=== PATIENT | female | born 1990 | race Caucasian/White ===

== ENCOUNTER 2021-09-14 11:16 | Inpatient (IN) | payer OTHER, SELFPAY ==
[2021-09-14 11:26] VITALS: BP 148/107; PULSE 79; RESP 16; TEMP 36.9; O2SAT 96
--- NOTE | 2021-09-14 11:47 | W.ED.GENADLT ---
HPI - General Adult General: Chief complaint: Psychiatric Symptoms Stated complaint: SI Time Seen by Provider: 09/14/21 11:36 History of Present Illness: HPI narrative: HPI: [31]yo patient w/ hx of depression BIBA for suicidal ideation. Patient tells me her mother and her ex both recently. She has not been able to restart her medicine because of insurance reasons. On arrival, the patient is AAOx3 and cooperative with my evaluation. No focal complaints of chest pain, shortness of breath, palpitations, N/V, focal GI/ complaints. Denies HI. No complaints of hallucinations. Onset: chronic x 1 month Duration: ongoing Location: home Severity: severe Associated symptoms: Deny chest pain, dyspnea, nausea, rash, palpitations or vomiting Review of Systems Const: Denies: fever(s) or chills Eyes: Denies: change in vision ENMT: Denies: mouth pain Card: Denies: chest pain or palpitations Resp: Denies: dyspnea or non-productive cough GI: Denies: abdominal pain, nausea, vomiting or diarrhea : Denies: dysuria Musc: Denies: extremity pain Skin/Breast: Denies: rash or new lesions Neuro: Denies: weakness in extremities Psych: Reports: depression Christiano/Lymph: Denies: easy bruising PFSH ED PFSH: Social History Smoking and tobacco status: never smoked Alcohol intake: never Substance/Drug Use: never Physical Exam Const: COMMON NORMALS: alert HENMT: COMMON NORMALS: atraumatic HEAD & SCALP: atraumatic MOUTH: moist mucous membranes not abnormal Eye: COMMON NORMALS: EOMs intact bilaterally and conjunctivae normal CONJUNCTIVA: Yes conjunctivae normal Neck/C-Spine: COMMON NORMALS: full ROM and supple Resp: COMMON NORMALS: normal respiratory effort and clear to auscultation bilaterally AUSCULTATION: clear to auscultation bilaterally Cardio: COMMON NORMALS: regular rate RATE: regular rate GI: COMMON NORMALS: Soft to palpation and non-tender PALPATION: Yes Soft to palpation Extremity: COMMON NORMALS: full ROM Neuro: SENSORIUM/ORIENTATION: Yes alert MOTOR EXAM: No Abnormal motor strength present and Other motor observations present (no focal motor deficits) Psych: COMMON NORMALS: speech normal SPEECH: Yes normal speech MOOD & AFFECT: Yes depressed mood Course Vital Signs: Vital signs: Vital Signs Temperature 98.4 F 09/14/21 11:26 Pulse Rate 79 09/14/21 11:26 Respiratory Rate 16 09/14/21 11:26 Blood Pressure 148/107 09/14/21 11:26 Pulse Oximetry 96 09/14/21 11:26 MDM - General Adult MDM Narrative: Medical decision making narrative: [31]yo patient w/ hx of depression presenting for depression and SI. HDS, exam within normal limit Thoughts are linear and organized, and the patient has no AH/VH, or HI. Clinically the patient displays no overt toxidrome; they are well appearing, with low suspicion for toxic ingestion given history and exam. Symptoms unlikely 2/2 anemia, hypothyroidism, infection, or ICH. Workup: CBC, CMP, Lipase, salicylate/tylenol, hCG, UDS Lab findings: wnl [12:30pm] On reassessment, labs and workup wnl. Patient is hemodynamically stable with no acute medical complaints. Case discussed with psychiatric provider Dr. Solorzano at [facility] psych inpatient with recommendation for admission Disposition: Psych Discharge Plan Discharge Patient Disposition: Admitted As Inpatient Clinical Impression: Suicidal ideations, Depression Condition: Stable Coding Level of Care Code ED Cornice Maker for Chg Fwd Exam Comprehensive
[2021-09-14 15:05] LABS: Basophils % 0.3 %; Eosinophils # 0.2 10^3/uL (0.0-0.8); Eosinophils % 1.5 %; Hematocrit 50.2 % (37.0-47.0); Hemoglobin 16.8 g/dL (11.5-15.3); Lymphocytes # 3.3 10^3/uL (0.8-4.8); Lymphocytes % 28.9 %; Mean Corpuscular HGB Conc 33.5 g/dL (30.0-36.0); Mean Corpuscular Hemoglobin 30.9 pg (28.0-34.0); Mean Corpuscular Volume 92.4 fl (81-99); Mean Platelet Volume 10.7 fL (7.4-10.4); Monocytes # 0.7 10^3/uL (0.2-0.9); Monocytes % 6.1 %; Neutrophils # 7.21 10^3/uL (1.8-7.7); Neutrophils % 62.9 %; Nucleated Red Blood Cells % 0 %; Platelet Count 301 10^3/cmm (130-400); Red Blood Count 5.43 10^6/uL (4.1-5.3); Red Cell Distribution Width 12.7 % (12.1-15.1); White Blood Count 11.5 10^3/uL (4.0-10.0)
[2021-09-14 15:25] LABS: HCG, Serum Qual Negative (Negative)
[2021-09-14 15:26] LABS: Alanine Aminotransferase 21 U/L (0-33); Alkaline Phosphatase 85 IU/L (35-105); Anion Gap 16.4 (5-19); Aspartate Amino Transferase 12 U/L (0-32); Blood Urea Nitrogen 10 mg/dL (6-20); Carbon Dioxide 23 mmol/L (22-29); Chloride 105 mmol/L (98-107); Glomerular Filtration Rate 118.2 mL/min (90-130); Glucose 75 mg/dL (65-115); Lipase 29 U/L (13-60); Osmolality Calculated 288 mOsm/kg (285-295); Potassium 4.4 mmol/L (3.5-5.1); Sodium 140 mmol/L (136-145); Total Bilirubin 0.4 mg/dL (0.15-1.2)
[2021-09-14 15:32] LABS: Acetaminophen < 5.0 ug/mL (10-30); Salicylate < 0.3 mg/dL (3-10)
[2021-09-14 16:25] VITALS: BP 113/76; PULSE 74; RESP 18; TEMP 36.8; O2SAT 96
[2021-09-14 17:06] VITALS: BP 127/94; PULSE 82; RESP 18; TEMP 36.6
[2021-09-14] MEDS: hyDROXYzine 25 mg Capsule 50 MG PO ×2 (17:34→20:25)
--- NOTE | 2021-09-14 18:16 | PC.NURSE ---
Addendum entered by Willie Diggs RN 09/14/21 18:51: PT IN BED RESTING O S/S OF DISTRESS, WILL CONTINUE TO MONITOR. Original Note: PRN MED PT GIVEN 50MG VISTARIL FOR ANXIETY, WILL CONTINUE TO MONITOR.
[2021-09-14 19:53] VITALS: BP 133/81; PULSE 68; RESP 15; TEMP 36.7; O2SAT 99
[2021-09-14] MEDS: trazodone 50 mg Tablet PO (20:25)
[2021-09-15 05:41] VITALS: BP 118/74; PULSE 71; RESP 17; TEMP 36.9; O2SAT 98
[2021-09-15] MEDS: fluoxetine 20 mg Capsule PO (09:00)
--- NOTE | 2021-09-15 10:15 | W.PM.NPUH&PS ---
Providers/Chief Complaint Admitting Physician: Toby Solorzano MD Chief Complaint: SI HPI NPU History of Present Illness Jose Guadalupe Rodas is a 31 year old female admitted through our emergency department with the following report: HPI narrative: HPI: [31]yo patient w/ hx of depression BIBA for suicidal ideation. Patient tells me her mother and her ex both recently. She has not been able to restart her medicine because of insurance reasons. On arrival, the patient is AAOx3 and cooperative with my evaluation. No focal complaints of chest pain, shortness of breath, palpitations, N/V, focal GI/ complaints. Denies HI. No complaints of hallucinations. Onset: chronic x 1 month She was admitted to the neuropsychiatry unit for definitive treatment of these issues. History is what is she has had a termite exterminator helper anxiety and depression. She says they were both equally debilitating. She avoids going shopping because of her anxiety. She has low self-esteem and social anxiety. She was recently admitted to a psychiatry hospital in April of last year. She said that she checked herself out AGAINST MEDICAL ADVICE because her mother was not doing well. Her mother is an alcoholic and had depression and anxiety and diabetes. She here very recently. Her ex- also within the last 3 weeks. They have been for 4 years and he was very violent but not towards her. He is an alcoholic and abused drugs. He was in the [place] and had PTSD. They have been for 7 months but are back together and planning to get again. She thinks he from an accidental overdose of alcohol and methamphetamine. She is admitted for depression and suicidal ideation. She said her childhood was okay. There were no significant issues. She was not abused. She had difficulty with concentration and her teenage years and they started her on Adderall and then started her on Zoloft for depression. She took the Zoloft for about 2 months and had suicidal ideation. She denies any other suicidal ideation until she got into her 20s. She was hospitalized for the first time when she was 24 years old. She has been hospitalized about 7 times. She says that the only medications she remembers being on is Prozac and Xanax 0.5 mg at bedtime for sleep. It is never really done anything and she does not think the dose has been higher than 20 mg. She has also had chronic insomnia. She took trazodone 50 mg and Vistaril last night to help her sleep and she agreed to try increasing trazodone to 100 mg so that she did not need anything else with it. She agreed to try Lexapro instead of Prozac. Meds NPU Home Medications Medication Instructions Recorded Confirmed Last Taken Type fluoxetine 20 mg PO DAILY 09/14/21 09/14/21 08/31/21 History Allergies Allergy/AdvReac Type Severity Reaction Status Date / Time No Known Allergies Allergy Verified 09/14/21 13:29 PFSH NPU PFSH: Social History Smoking and tobacco status: never smoked Alcohol intake: never Substance/Drug Use: never Mental Status Exam MSE Comments: This is a 31-year-old overweight female who appears approximately her stated age and is in no acute distress. She is dressed in hospital scrubs. She is pleasant and cooperative with normal. Good eye contact. psychomotor activity is normal.. Speech is at a regular rate and rhythm, normal volume, good articulation, not pressured. Alert, oriented X3 Attention and concentration appears to be normal. Memory is intact Mood is depressed. Affect is moderately dysphoric. Thought process is logical and goal-directed. Thought content: Denies auditory and visual hallucinations. No delusions or paranoia are noted. No current suicidal ideation, and no homicidal ideation. Fund of knowledge is average. Insight and judgment appear to be good. Impulse control is good. Vitals/I&O/Wt Last Vital Signs Temp 98.4 F 09/15/21 05:41 Pulse 71 09/15/21 05:41 Resp 17 09/15/21 05:41 BP 118/74 09/15/21 05:41 Pulse Ox 98 09/15/21 05:41 Weight last 48 hrs Weight 102.058 kg Data NPU : 09/14/21 14:36 09/14/21 14:36 A&P Assessment and plan (1) Depression: Status: Acute Qualifiers: Depression Type: major depressive disorder Major depression recurrence: recurrent Active/Remission status: currently active Major depression episode severity: severe Psychotic features: without psychotic features Qualified Code(s): F33.2 - Major depressive disorder, recurrent severe without psychotic features (2) Suicidal ideations: Status: Acute (3) Anxiety: Status: Acute Additional A&P Information This is a 31-year-old female with 7 prior hospitalizations who comes in after her ex- and mother in the last 3 weeks and has suicidal ideations. plan: 1. We will change to Lexapro and trazodone 100 mg nightly. 2. Continue every 15 minute checks for safety. 3. Encourage individual, group and milieu therapies. 4. Encourage sober living treatment after discharge at the highest level of care to which she is willing to commit. 5. We will monitor for safety for herself in the community prior to discharge. Involuntary Hold Information 96 Hour Hold: 96 Hour Involuntary Admission: No Attestations NPU Medical Necessity Statement*: Inpatient hospitalization is medically necessary and the clinically appropriate intervention at this time. We will initiate medications and make changes as indicated. She will be in the hospital for over 2 midnights. Likely length of stay 4-6 days Coding Level of Care Code Acute [employer] Unit Feeder for Saulo Castillo Diagnoses Depression F33.2 Depression Type: major depressive disorder Major depression recurrence: recurrent Active/Remission status: currently active Major depression episode severity: severe Psychotic features: without psychotic features Suicidal ideations R45.851 Anxiety F41.9
[2021-09-15] MEDS: hyDROXYzine 25 mg Capsule 50 MG PO ×2 (11:25→21:22)
[2021-09-15] MEDS: OLANZapine 5 mg ODT PO (11:25)
[2021-09-15 13:40] VITALS: BP 118/74; PULSE 71; RESP 17; TEMP 36.9; O2SAT 98
[2021-09-15 21:05] VITALS: BP 116/80; PULSE 64; RESP 16; TEMP 36.3; O2SAT 96
[2021-09-15] MEDS: trazodone 50 mg Tablet 100 MG PO (21:22)
--- NOTE | 2021-09-16 00:40 | PC.NURSE ---
PRN Administration Patient c/o having trouble falling asleep and anxiety. PRN trazodone and hydroxyzine PO given as ordered with noted effectiveness.
[2021-09-16] MEDS: acetaminophen 325 mg Tablet 650 MG PO (04:39)
--- NOTE | 2021-09-16 04:41 | PC.NURSE ---
PRN administration Patient c/o pain 03/07 in back. PRN Tylenol given PO as ordered.
[2021-09-16 06:00] VITALS: BP 109/74; PULSE 67; RESP 18; TEMP 36.3; O2SAT 97
[2021-09-16] MEDS: escitalopram 10 mg Tablet PO (09:36)
--- NOTE | 2021-09-16 12:11 | P.NPUPN_ITS ---
Subjective NPU Subjective: Interval history: She is still feeling depressed and has some suicidal ideation. She did not sleep very well last night. She was in bed much of the day yesterday. He was encouraged to get up and stay out of bed more. She has not been going to groups and was encouraged to do so. She did walk in the hallway some this morning but was encouraged to do that more. She was told to talk to any other patients also do anything other than staying in bed. Been on Prozac so we should be able to increase the Lexapro to 20 mg without difficulty. She agrees to do that. She did not have difficulty with today's 10 mg dose. Mental Status Exam MSE Comments: This is a 31-year-old overweight female who appears approximately her stated age and is in no acute distress. He was found in bed at 12 noon. She is dressed in hospital scrubs. She is pleasant and cooperative with Good eye contact. psychomotor activity is normal.. Speech is at a regular rate and rhythm, normal volume, good articulation, not pressured. Alert, oriented X3 Attention and concentration appears to be normal. Memory is intact Mood is depressed. Affect is moderately dysphoric. Thought process is logical and goal-directed. Thought content: Denies auditory and visual hallucinations. No delusions or paranoia are noted. He has had some mild suicidal ideation today but no plan. She denies homicidal ideation. Fund of knowledge is average. Insight and judgment appear to be good. Impulse control is good. Cognition: Patient Appearance: Appropriate Level of Consciousness: Awake, Alert, Appropriate and Follows Commands Patient Cognition Impaired: No Ability to Follow Directions: Good Patient Orientation (long list): Person, Place, Time, Name, Age and Birthday Comprehension Ability: No Impairment Hallucination Type: None Delusion Description: Not Present Thought Process: Appropriate Affect: Affect Description: Flat and Guarded Depressive Symptoms: Insomnia and Unhappiness Behavior: Patient Behavior: Cooperative and Withdrawn Speech Pattern: Appropriate Vitals/I&O/Wt Last Vital Signs Temp 97.3 F L 09/16/21 06:00 Pulse 67 09/16/21 06:00 Resp 18 09/16/21 06:00 BP 109/74 09/16/21 06:00 Pulse Ox 97 09/16/21 06:00 Data NPU : 09/14/21 14:36 09/14/21 14:36 A&P Assessment and plan (1) Depression: Status: Acute Qualifiers: Depression Type: major depressive disorder Major depression recurrence: recurrent Active/Remission status: currently active Major depression episode severity: severe Psychotic features: without psychotic features Qualified Code(s): F33.2 - Major depressive disorder, recurrent severe without psychotic features (2) Suicidal ideations: Status: Acute (3) Anxiety: Status: Acute Additional A&P Information This is a 31-year-old female with 7 prior hospitalizations who comes in after her ex- and mother in the last 3 weeks and has suicidal ideations. plan: 1. We will increase Lexapro 20 mg and continue trazodone 100 mg nightly. 2. Continue every 15 minute checks for safety. 3. Encourage individual, group and milieu therapies. 4. Encourage sober living treatment after discharge at the highest level of care to which she is willing to commit. 5. We will monitor for safety for herself in the community prior to discharge. Involuntary Hold Information 96 Hour Hold: 96 Hour Involuntary Admission: No Attestations NPU Medical Necessity Statement*: Inpatient hospitalization is medically necessary and the clinically appropriate intervention at this time. We will initiate medications and make changes as indicated. Coding Level of Care Code Acute [employer] for Saulo Castillo Diagnoses Depression F33.2 Depression Type: major depressive disorder Major depression recurrence: recurrent Active/Remission status: currently active Major depression episode severity: severe Psychotic features: without psychotic features Suicidal ideations R45.851 Anxiety F41.9
[2021-09-16] MEDS: nicotine 2 mg Gum BUCCAL (12:38)
[2021-09-16 14:00] VITALS: BP 110/72; PULSE 95; RESP 18; TEMP 36.6; O2SAT 100
[2021-09-16] MEDS: trazodone 50 mg Tablet 100 MG PO (21:31)
[2021-09-16] MEDS: hyDROXYzine 25 mg Capsule 50 MG PO (21:31)
[2021-09-16 21:46] VITALS: BP 112/77; PULSE 67; RESP 16; TEMP 36.7; O2SAT 98
--- NOTE | 2021-09-17 01:25 | PC.NURSE ---
PRN Administration Patient c/o of anxiety and trouble falling asleep. Given PRN hydroxyzine and Trazodone PO as ordered with noted effectiveness.
[2021-09-17 06:00] VITALS: BP 95/61; PULSE 63; RESP 18; TEMP 36.6; O2SAT 96
[2021-09-17] MEDS: escitalopram 10 mg Tablet PO (08:24)
[2021-09-17] MEDS: hyDROXYzine 25 mg Capsule 50 MG PO (11:37)
[2021-09-17] MEDS: nicotine 2 mg Gum BUCCAL (13:40)
--- NOTE | 2021-09-17 13:43 | P.NPUPN_ITS ---
Subjective NPU Subjective: Interval history: She is feeling a little better today. A little less depressed. She is not sure why. She lives with her aunt. Her mother still has things in her apartment and she needs to clean that out before she starts working again. She has not worked since March. She agreed that going back to work eventually would be healthy. Mental Status Exam MSE Comments: This is a 31-year-old overweight female who appears approximately her stated age and is in no acute distress. She was found in her room talking with her roommates at 1:30 PM.. She is dressed in hospital scrubs. She is pleasant and cooperative with Good eye contact. psychomotor activity is normal. Speech is at a regular rate and rhythm, normal volume, good articulation, not pressured. Alert, oriented X3 Attention and concentration appears to be normal. Memory is intact Mood is depressed. Affect is moderately dysphoric. Thought process is logical and goal-directed. Thought content: Denies auditory and visual hallucinations. No delusions or paranoia are noted. He has had some mild suicidal ideation today but no plan. She denies homicidal ideation. Fund of knowledge is average. Insight and judgment appear to be good. Impulse control is good. Cognition: Patient Appearance: Appropriate Level of Consciousness: Awake, Alert, Appropriate and Follows Commands Patient Cognition Impaired: No Ability to Follow Directions: Good Patient Orientation (long list): Person, Place, Time, Name, Age and Birthday Comprehension Ability: No Impairment Hallucination Type: None Delusion Description: Not Present Thought Process: Appropriate Affect: Affect Description: Appropriate Depressive Symptoms: Insomnia and Unhappiness Behavior: Patient Behavior: Appropriate Speech Pattern: Appropriate Vitals/I&O/Wt Last Vital Signs Temp 98 F 09/17/21 06:00 Pulse 63 09/17/21 06:00 Resp 18 09/17/21 06:00 BP 95/61 09/17/21 06:00 Pulse Ox 96 09/17/21 06:00 Data NPU : 09/14/21 14:36 09/14/21 14:36 A&P Assessment and plan (1) Depression: Status: Acute Qualifiers: Depression Type: major depressive disorder Major depression recurrence: recurrent Active/Remission status: currently active Major depression episode severity: severe Psychotic features: without psychotic features Qualified Code(s): F33.2 - Major depressive disorder, recurrent severe without psychotic features (2) Suicidal ideations: Status: Acute (3) Anxiety: Status: Acute Additional A&P Information This is a 31-year-old female with 7 prior hospitalizations who comes in after her ex- and mother in the last 3 weeks and has suicidal ideations. plan: 1. Day 2 of Lexapro 20 mg and continue trazodone 100 mg nightly. 2. Continue every 15 minute checks for safety. 3. Encourage individual, group and milieu therapies. 4. Encourage sober living treatment after discharge at the highest level of care to which she is willing to commit. 5. We will monitor for safety for herself in the community prior to discharge. Involuntary Hold Information 96 Hour Hold: 96 Hour Involuntary Admission: No Attestations NPU Medical Necessity Statement*: Inpatient hospitalization is medically necessary and the clinically appropriate intervention at this time. We will initiate medications and make changes as indicated. Coding Level of Care Code Acute Home Economics Extension Worker for Saulo Castillo Diagnoses Depression F33.2 Depression Type: major depressive disorder Major depression recurrence: recurrent Active/Remission status: currently active Major depression episode severity: severe Psychotic features: without psychotic features Suicidal ideations R45.851 Anxiety F41.9
[2021-09-17 14:00] VITALS: BP 111/73; PULSE 71; RESP 18; TEMP 36.6; O2SAT 97
[2021-09-17 20:30] VITALS: BP 113/79; PULSE 79; RESP 17; TEMP 36.5; O2SAT 98
[2021-09-18 06:00] VITALS: BP 113/79; PULSE 79; RESP 17; TEMP 36.5; O2SAT 98
[2021-09-18 06:36] VITALS: BP 147/73; PULSE 64; RESP 16; TEMP 36.8; O2SAT 94
[2021-09-18] MEDS: escitalopram 10 mg Tablet PO (09:17)
--- NOTE | 2021-09-18 11:49 | W.PM.NPUPNS ---
Subjective NPU Subjective: Interval history: She is tired this morning. She said that she did not get sleep medications last night. She went to early and they told her it would be about 45 minutes. She says that she kept on waiting for them to bring her her medications but they never did. Her mood is a little bit better today. About the same as yesterday. She continues to feel that she is getting better and is optimistic about the progress. Mental Status Exam MSE Comments: This is a 31-year-old overweight female who appears approximately her stated age and is in no acute distress. She was found in her room talking with her roommates at 1:30 PM.. She is dressed in hospital scrubs. She is pleasant and cooperative with Good eye contact. psychomotor activity is normal. Speech is at a regular rate and rhythm, normal volume, good articulation, not pressured. Alert, oriented X3 Attention and concentration appears to be normal. Memory is intact Mood is depressed. Affect is moderately dysphoric. Thought process is logical and goal-directed. Thought content: Denies auditory and visual hallucinations. No delusions or paranoia are noted. He has had some mild suicidal ideation today but no plan. She denies homicidal ideation. Fund of knowledge is average. Insight and judgment appear to be good. Impulse control is good. Cognition: Patient Appearance: Appropriate Level of Consciousness: Awake, Alert, Appropriate and Follows Commands Patient Cognition Impaired: No Ability to Follow Directions: Good Patient Orientation (long list): Person, Place, Time, Name, Age and Birthday Comprehension Ability: No Impairment Hallucination Type: None Delusion Description: Not Present Thought Process: Appropriate Affect: Affect Description: Appropriate and Calm Depressive Symptoms: Insomnia and Unhappiness Behavior: Patient Behavior: Appropriate and Cooperative Speech Pattern: Appropriate and Clear Vitals/I&O/Wt Last Vital Signs Temp 98.2 F 09/18/21 06:36 Pulse 64 09/18/21 06:36 Resp 16 09/18/21 06:36 BP 147/73 09/18/21 06:36 Pulse Ox 94 09/18/21 06:36 Data NPU : 09/14/21 14:36 09/14/21 14:36 A&P Assessment and plan (1) Depression: Status: Acute Qualifiers: Depression Type: major depressive disorder Major depression recurrence: recurrent Active/Remission status: currently active Major depression episode severity: severe Psychotic features: without psychotic features Qualified Code(s): F33.2 - Major depressive disorder, recurrent severe without psychotic features (2) Suicidal ideations: Status: Acute (3) Anxiety: Status: Acute Additional A&P Information This is a 31-year-old female with 7 prior hospitalizations who comes in after her ex- and mother in the last 3 weeks and has suicidal ideations. plan: 1. Day 3 of Lexapro 20 mg and continue trazodone 100 mg nightly. 2. Continue every 15 minute checks for safety. 3. Encourage individual, group and milieu therapies. 4. Encourage sober living treatment after discharge at the highest level of care to which she is willing to commit. 5. We will monitor for safety for herself in the community prior to discharge. Involuntary Hold Information 96 Hour Hold: 96 Hour Involuntary Admission: No Attestations NPU Medical Necessity Statement*: Inpatient hospitalization is medically necessary and the clinically appropriate intervention at this time. We will initiate medications and make changes as indicated. Coding Level of Care Code Acute Bed Spring Maker for Saulo Castillo Diagnoses Depression F33.2 Depression Type: major depressive disorder Major depression recurrence: recurrent Active/Remission status: currently active Major depression episode severity: severe Psychotic features: without psychotic features Suicidal ideations R45.851 Anxiety F41.9
[2021-09-18 14:00] VITALS: BP 126/84; PULSE 68; RESP 17; TEMP 37; O2SAT 96
[2021-09-18] MEDS: nicotine 2 mg Gum BUCCAL (17:19)
[2021-09-18 20:26] VITALS: BP 121/79; PULSE 75; RESP 16; O2SAT 97
[2021-09-18] MEDS: trazodone 50 mg Tablet 100 MG PO (20:51)
[2021-09-18] MEDS: hyDROXYzine 25 mg Capsule 50 MG PO (20:51)
--- NOTE | 2021-09-19 02:39 | PC.NURSE ---
PRN administration Patient c/o of trouble getting to sleep and anxiety. Requested PRN trazodone and hydroxyzine PO, given as ordered with noted effectiveness.
[2021-09-19 06:00] VITALS: BP 92/61; PULSE 64; RESP 20; TEMP 36.4; O2SAT 97
[2021-09-19] MEDS: escitalopram 10 mg Tablet PO (09:23)
--- NOTE | 2021-09-19 11:24 | W.PM.NPUPNS ---
Subjective NPU Subjective: Interval history: He says that she is getting a little bit better every day. She slept well last night with trazodone 100 mg. She continues to be fairly depressed but denies any suicidal ideation last 24 hours. She is participating in groups. She was found up and around in the day room after being at 11:15 AM. Mental Status Exam MSE Comments: This is a 31-year-old overweight female who appears approximately her stated age and is in no acute distress. She was found in the day room talking with other patients at 11:00 AM.. She is dressed in hospital scrubs. She is pleasant and cooperative with Good eye contact. psychomotor activity is normal. Speech is at a regular rate and rhythm, normal volume, good articulation, not pressured. Alert, oriented X3 Attention and concentration appears to be normal. Memory is intact Mood is depressed but a little better. Affect is mildly dysphoric. Thought process is logical and goal-directed. Thought content: Denies auditory and visual hallucinations. No delusions or paranoia are noted. She denies suicidal ideation today. She denies homicidal ideation. Fund of knowledge is average. Insight and judgment appear to be good. Impulse control is good. Cognition: Patient Appearance: Appropriate Level of Consciousness: Awake, Alert, Appropriate and Follows Commands Patient Cognition Impaired: No Ability to Follow Directions: Good Patient Orientation (long list): Person, Place, Time, Name, Age and Birthday Comprehension Ability: No Impairment Hallucination Type: None Delusion Description: Not Present Thought Process: Appropriate Affect: Affect Description: Calm Depressive Symptoms: Insomnia and Unhappiness Behavior: Patient Behavior: Cooperative Speech Pattern: Clear Vitals/I&O/Wt Last Vital Signs Temp 97.5 F L 09/19/21 06:00 Pulse 64 09/19/21 06:00 Resp 20 H 09/19/21 06:00 BP 92/61 09/19/21 06:00 Pulse Ox 97 09/19/21 06:00 Data NPU : 09/14/21 14:36 09/14/21 14:36 A&P Assessment and plan (1) Depression: Status: Acute Qualifiers: Depression Type: major depressive disorder Major depression recurrence: recurrent Active/Remission status: currently active Major depression episode severity: severe Psychotic features: without psychotic features Qualified Code(s): F33.2 - Major depressive disorder, recurrent severe without psychotic features (2) Suicidal ideations: Status: Acute (3) Anxiety: Status: Acute Additional A&P Information This is a 31-year-old female with 7 prior hospitalizations who comes in after her ex- and mother in the last 3 weeks and has suicidal ideations. plan: 1. Day 4 of Lexapro 20 mg and continue trazodone 100 mg nightly. 2. Continue every 15 minute checks for safety. 3. Encourage individual, group and milieu therapies. 4. Encourage sober living treatment after discharge at the highest level of care to which she is willing to commit. 5. We will monitor for safety for herself in the community prior to discharge. Involuntary Hold Information 96 Hour Hold: 96 Hour Involuntary Admission: No Attestations NPU Medical Necessity Statement*: Inpatient hospitalization is medically necessary and the clinically appropriate intervention at this time. We will initiate medications and make changes as indicated. Coding Level of Care Code Acute [facility] Diagnoses Depression F33.2 Depression Type: major depressive disorder Major depression recurrence: recurrent Active/Remission status: currently active Major depression episode severity: severe Psychotic features: without psychotic features Suicidal ideations R45.851 Anxiety F41.9
[2021-09-19] MEDS: nicotine 2 mg Gum BUCCAL ×3 (12:15→19:07)
[2021-09-19 14:00] VITALS: BP 110/74; PULSE 71; RESP 17; O2SAT 95
[2021-09-19 20:12] VITALS: BP 128/86; PULSE 90; RESP 17; O2SAT 96
[2021-09-19] MEDS: trazodone 50 mg Tablet 100 MG PO (20:28)
[2021-09-19] MEDS: OLANZapine 5 mg ODT PO (23:01)
--- NOTE | 2021-09-20 04:34 | PC.NURSE ---
Patient received TArazodone 100 mg po for insomnia. This was ineffective. Zyprexa 5 mg po given. This was effective.
[2021-09-20 06:00] VITALS: BP 109/77; PULSE 67; RESP 16; TEMP 36.5; O2SAT 97
[2021-09-20] MEDS: escitalopram 10 mg Tablet PO (08:51)
--- NOTE | 2021-09-20 10:35 | P.NPUPN_ITS ---
Subjective NPU Subjective: Interval history: She had difficulty sleeping last night. For some reason the trazodone 100 mg did not work for her electric as previously. She eventually took the Zyprexa. She slept fairly well after that. She is still somewhat drowsy this morning. She continues to feel that her mood is gradually improving a little bit each day. She feels like she will be able to go home in a couple of days. She is having suicidal thoughts today. She has not had side effects from the Lexapro and requested to increase it to 20 mg daily. She understands that it should generally be less than 10 mg for a month and she might be able to reduce it back to that dose in the near future. Mental Status Exam MSE Comments: This is a 31-year-old overweight female who appears approximately her stated age and is in no acute distress. She was found in bed at 10:30 AM.. She is dressed in hospital scrubs. She is pleasant and cooperative with Good eye contact. psychomotor activity is mildly decreased. Speech is at a regular rate and rhythm, normal volume, good articulation, not pressured. Alert, oriented X3 Attention and concentration appears to be normal. Memory is intact Mood is depressed but a little better each day. Affect is mildly dysphoric. Thought process is logical and goal-directed. Thought content: Denies auditory and visual hallucinations. No delusions or paranoia are noted. She denies suicidal ideation today. She denies homicidal ideation. Fund of knowledge is average. Insight and judgment appear to be good. Impulse control is good. Cognition: Patient Appearance: Appropriate Level of Consciousness: Awake, Alert, Appropriate and Follows Commands Patient Cognition Impaired: No Ability to Follow Directions: Good Patient Orientation (long list): Person, Place, Time, Name, Age and Birthday Comprehension Ability: No Impairment Hallucination Type: None Delusion Description: Not Present Thought Process: Appropriate Affect: Affect Description: Appropriate Depressive Symptoms: Insomnia and Unhappiness Behavior: Patient Behavior: Appropriate Speech Pattern: Appropriate Vitals/I&O/Wt Last Vital Signs Temp 97.7 F 09/20/21 06:00 Pulse 67 09/20/21 06:00 Resp 16 09/20/21 06:00 BP 109/77 09/20/21 06:00 Pulse Ox 97 09/20/21 06:00 Data NPU : 09/14/21 14:36 09/14/21 14:36 A&P Assessment and plan (1) Depression: Status: Acute Qualifiers: Depression Type: major depressive disorder Major depression recurrence: recurrent Active/Remission status: currently active Major depression episode severity: severe Psychotic features: without psychotic features Qualified Code(s): F33.2 - Major depressive disorder, recurrent severe without psychotic features (2) Suicidal ideations: Status: Acute (3) Anxiety: Status: Acute Additional A&P Information This is a 31-year-old female with 7 prior hospitalizations who comes in after her ex- and mother in the last 3 weeks and has suicidal ideations. plan: 1. Increase Lexapro 20 mg and continue trazodone 100 mg nightly. 2. Continue every 15 minute checks for safety. 3. Encourage individual, group and milieu therapies. 4. Encourage sober living treatment after discharge at the highest level of care to which she is willing to commit. 5. We will monitor for safety for herself in the community prior to discharge. Involuntary Hold Information 96 Hour Hold: 96 Hour Involuntary Admission: No Attestations NPU Medical Necessity Statement*: Inpatient hospitalization is medically necessary and the clinically appropriate intervention at this time. We will initiate medications and make changes as indicated. Coding Level of Care Code Acute [facility] Diagnoses Depression F33.2 Depression Type: major depressive disorder Major depression recurrence: recurrent Active/Remission status: currently active Major depression episode severity: severe Psychotic features: without psychotic features Suicidal ideations R45.851 Anxiety F41.9
[2021-09-20] MEDS: nicotine 2 mg Gum BUCCAL ×3 (13:26→20:13)
[2021-09-20 14:00] VITALS: BP 119/79; PULSE 80; RESP 20; TEMP 36.6; O2SAT 97
[2021-09-20] MEDS: blistex lip oint 7 gm Tube 1 APPLIC TOPICAL (17:08)
[2021-09-20 20:22] VITALS: BP 137/88; PULSE 81; RESP 17; TEMP 36.6; O2SAT 94
[2021-09-20] MEDS: trazodone 50 mg Tablet 100 MG PO (23:19)
--- NOTE | 2021-09-21 01:13 | PC.NURSE ---
4616 Patient is asking for something to help her sleep. Trazodone 100mg po given for insomnia. This med was effective.
[2021-09-21 06:00] VITALS: BP 107/65; PULSE 69; RESP 20; TEMP 36.3; O2SAT 93
[2021-09-21 07:12] VITALS: BP 107/65; PULSE 69; RESP 20; TEMP 36.3; O2SAT 93
[2021-09-21] MEDS: escitalopram 10 mg Tablet 20 MG PO (09:34)
[2021-09-21] MEDS: nicotine 2 mg Gum BUCCAL ×2 (12:17→16:47)
--- NOTE | 2021-09-21 12:50 | P.NPUPN_ITS ---
Subjective NPU Subjective: Interval history: She said that she is feeling better. Her mood is actually fairly good today. He slept well last night. She took the increased dose of Lexapro today and did not have any side effects. She is sleeping well on the trazodone 100 mg. Mental Status Exam MSE Comments: This is a 31-year-old overweight female who appears approximately her stated age and is in no acute distress. She was found in bed at 10:30 AM.. She is dressed in hospital scrubs. She is pleasant and cooperative with Good eye contact. psychomotor activity is mildly decreased. Speech is at a regular rate and rhythm, normal volume, good articulation, not pressured. Alert, oriented X3 Attention and concentration appears to be normal. Memory is intact Mood is very mildly depressed.. Affect is very mildly dysphoric. Thought process is logical and goal-directed. Thought content: Denies auditory and visual hallucinations. No delusions or paranoia are noted. She denies suicidal ideation today. She denies homicidal ideation. Fund of knowledge is average. Insight and judgment appear to be good. Impulse control is good. Cognition: Patient Appearance: Appropriate Level of Consciousness: Awake, Alert, Appropriate and Follows Commands Patient Cognition Impaired: No Ability to Follow Directions: Good Patient Orientation (long list): Person, Place, Time, Name, Age and Birthday Comprehension Ability: No Impairment Hallucination Type: None Delusion Description: Not Present Thought Process: Appropriate Affect: Affect Description: Appropriate and Calm Depressive Symptoms: Insomnia and Unhappiness Behavior: Patient Behavior: Appropriate and Cooperative Speech Pattern: Appropriate and Clear Vitals/I&O/Wt Last Vital Signs Temp 97.4 F L 09/21/21 07:12 Pulse 69 09/21/21 07:12 Resp 20 H 09/21/21 07:12 BP 107/65 09/21/21 07:12 Pulse Ox 93 09/21/21 07:12 Data NPU : 09/14/21 14:36 09/14/21 14:36 A&P Assessment and plan (1) Depression: Status: Acute Qualifiers: Depression Type: major depressive disorder Major depression recurrence: recurrent Active/Remission status: currently active Major depression episode severity: severe Psychotic features: without psychotic features Qualified Code(s): F33.2 - Major depressive disorder, recurrent severe without psychotic features (2) Suicidal ideations: Status: Acute (3) Anxiety: Status: Acute Additional A&P Information This is a 31-year-old female with 7 prior hospitalizations who comes in after her ex- and mother in the last 3 weeks and has suicidal ideations. plan: 1. Increase Lexapro 20 mg and continue trazodone 100 mg nightly. 2. Continue every 15 minute checks for safety. 3. Encourage individual, group and milieu therapies. 4. Encourage sober living treatment after discharge at the highest level of care to which she is willing to commit. 5. We will monitor for safety for herself in the community prior to discharge. Involuntary Hold Information 96 Hour Hold: 96 Hour Involuntary Admission: No Attestations NPU Medical Necessity Statement*: Inpatient hospitalization is medically necessary and the clinically appropriate intervention at this time. We will initiate medications and make changes as indicated. Coding Level of Care Code Acute [facility] Diagnoses Depression F33.2 Depression Type: major depressive disorder Major depression recurrence: recurrent Active/Remission status: currently active Major depression episode severity: severe Psychotic features: without psychotic features Suicidal ideations R45.851 Anxiety F41.9
[2021-09-21 14:00] VITALS: BP 117/81; PULSE 78; RESP 20; TEMP 36.6; O2SAT 97
[2021-09-21 20:16] VITALS: BP 119/74; PULSE 82; RESP 18; O2SAT 96
[2021-09-21] MEDS: trazodone 50 mg Tablet 100 MG PO (21:18)
[2021-09-22 06:00] VITALS: BP 143/88; PULSE 72; RESP 18; TEMP 36.1; O2SAT 98
--- NOTE | 2021-09-22 08:08 | P.NPUDS_ITS ---
Diagnoses at Discharge Discharge Diagnosis (1) Depression: Status: Acute Qualifiers: Depression Type: major depressive disorder Major depression recurrence: recurrent Active/Remission status: currently active Major depression episode severity: severe Psychotic features: without psychotic features Qualified Code(s): F33.2 - Major depressive disorder, recurrent severe without psychotic features (2) Suicidal ideations: Status: Acute (3) Anxiety: Status: Acute Reason for Visit Reason for Visit: SI Brief History: History of Present Illness Jose Guadalupe Rodas is a 31 year old female admitted through our emergency department with the following report: HPI narrative: HPI: [31]yo patient w/ hx of depression BIBA for suicidal ideation. Patient tells me her mother and her ex both recently. She has not been able to restart her medicine because of insurance reasons. On arrival, the patient is AAOx3 and cooperative with my evaluation. No focal complaints of chest pain, shortness of breath, palpitations, N/V, focal GI/ complaints. Denies HI. No complaints of hallucinations. Onset: chronic x 1 month She was admitted to the neuropsychiatry unit for definitive treatment of these issues.? History is what is she has had a jail anxiety and depression.? She says they were both equally debilitating.? She avoids going shopping because of her anxiety.? She has low self-esteem and social anxiety.? She was recently admitted to a psychiatry hospital in April of last year.? She said that she checked herself out AGAINST MEDICAL ADVICE because her mother was not doing well.? Her mother is an alcoholic and had depression and anxiety and diabetes.? She here very recently.? Her ex- also within the last 3 weeks.? They have been for 4 years and he was very violent but not towards her.? He is an alcoholic and abused drugs.? He was in the [employer] and had PTSD.? They have been for 7 months but are back together and planning to get again.? She thinks he from an accidental overdose of alcohol and methamphetamine.? She is admitted for depression and suicidal ideation.? She said her childhood was okay.? There were no significant issues.? She was not abused.? She had difficulty with concentration and her teenage years and they started her on Adderall and then started her on Zoloft for depression.? She took the Zoloft for about 2 months and had suicidal ideation.? She denies any other suicidal ideation until she got into her 20s.? She was hospitalized for the first time when she was 24 years old.? She has been hospitalized about 7 times.? She says that the only medications she remembers being on is Prozac and Xanax 0.5 mg at bedtime for sleep.? It is never really done anything and she does not think the dose has been higher than 20 mg.? She has also had chronic insomnia.? She took trazodone 50 mg and Vistaril last night to help her sleep and she agreed to try increasing trazodone to 100 mg so that she did not need anything else with it.? She agreed to try Lexapro instead of Prozac. Hospital Course Hospital Course She slowly acclimated to the individual, group and milieu therapies provided. She was started on Lexapro and increased to 20 mg. she tolerated these doses and showed steady improvement during her stay. She was able to contract for safety outside hospital prior to discharge. During the hospitalization, patient had routine laboratory studies which were within normal limits except for few outliers. Additionally there was a general medical evaluation which was also within normal limits and revealed no new acute processes. Discharge Summary: At the time of discharge, lethality was denied. Mood and anxiety were well managed. Patient endorsed a plan to follow-up with the aftercare r ecommendations of the treatment team. Patient was evaluated and deemed to be absent credible lethality, and had achieved the maximum benefit from an inpatient hospitalization, so was discharged. Involuntary Hold Information 96 Hour Hold: 96 Hour Involuntary Admission: No Mental Status Exam MSE Comments: This is a 31-year-old overweight female who appears approximately her stated age and is in no acute distress. She was found in bed at 10:30 AM.. She is dressed in hospital scrubs. She is pleasant and cooperative with Good eye contact. psychomotor activity is mildly decreased. Speech is at a regular rate and rhythm, normal volume, good articulation, not pressured. Alert, oriented X3 Attention and concentration appears to be normal. Memory is intact Mood is very mildly depressed.. Affect is very mildly dysphoric. Thought process is logical and goal-directed. Thought content: Denies auditory and visual hallucinations. No delusions or paranoia are noted. She denies suicidal ideation today. She denies homicidal ideation. Fund of knowledge is average. Insight and judgment appear to be good. Impulse control is good. Cognition: Patient Appearance: Appropriate Level of Consciousness: Awake, Alert, Appropriate and Follows Commands Patient Cognition Impaired: No Ability to Follow Directions: Good Patient Orientation (long list): Person, Place, Time, Name, Age and Birthday Comprehension Ability: No Impairment Hallucination Type: None Delusion Description: Not Present Thought Process: Appropriate Affect: Affect Description: Appropriate and Calm Depressive Symptoms: Insomnia and Unhappiness Behavior: Patient Behavior: Appropriate and Cooperative Speech Pattern: Appropriate and Clear Discharge Data Vitals: Last Vital Signs Temp 97.0 F L 09/22/21 06:00 Pulse 72 09/22/21 06:00 Resp 18 09/22/21 06:00 BP 143/88 09/22/21 06:00 Pulse Ox 98 09/22/21 06:00 Discharge Plan Discharge Patient Disposition: Home Condition: Stable Prescriptions: New trazodone 50 mg Tablet 100 mg PO BEDTIME PRN (Reason: Sleep) 30 Days Qty: 30 1RF escitalopram oxalate 10 mg Tablet 20 mg PO DAILY 30 Days Qty: 30 1RF Discontinued fluoxetine 10 mg capsule 20 mg PO DAILY 0RF Discharge Orders: Discharge Order (Routine); Ordered 09/22/21 Ordered By: Toby Solorzano Referrals: [facility] [Outside] - 4-7 days Discharge Diet: Regular Discharge Activity: Resume usual activity Patient Instructions: Opioid Safety Discharge Attestations NPU Time Spent in Discharge Care*: less than 30 min Coding Level of Care Code Acute [facility] DC note Diagnoses Depression F33.2 Depression Type: major depressive disorder Major depression recurrence: recurrent Active/Remission status: currently active Major depression episode severity: severe Psychotic features: without psychotic features Suicidal ideations R45.851 Anxiety F41.9
[2021-09-22 08:28] VITALS: BP 143/88; PULSE 72; RESP 18; TEMP 36.1; O2SAT 98
[2021-09-22] MEDS: escitalopram 10 mg Tablet 20 MG PO (09:04)
== END 2021-09-22 10:03 | disposition home or self-care (01) | DRG 885 ==
LOC: ER 15:23 → NP 16:00
PROVIDERS: Admitting Provider Psychiatry & Neurology Psychiatry; Emergency Provider Emergency Medicine; Visit Provider Psychiatry & Neurology Psychiatry
DX: F33.2 Major depressive disorder, recurrent severe without psychotic features (principal); R45.851 Suicidal ideations; F41.9 Anxiety disorder, unspecified; Z91.120 Patient's intentional underdosing of medication regimen due to financial hardship; Z81.1 Family history of alcohol abuse and dependence; F51.04 Psychophysiologic insomnia
CPT/HCPCS: 80053; 80307; 83690; 84703; 85025; 97150; 97165; 99285

== ENCOUNTER 2023-01-01 01:09 | Emergency (ER) | payer OTHER, MEDICAID, SELFPAY ==
[2023-01-01 01:34] VITALS: BP 148/99; PULSE 61; RESP 18; TEMP 36.4; O2SAT 97; BMI 45.7
[2023-01-01 01:48] VITALS: BP 159/93; PULSE 69; RESP 16; O2SAT 98
--- NOTE | 2023-01-01 02:41 | ED_ITS ---
HPI - Female Genitourinary General: Chief complaint: Vaginal Bleeding Stated complaint: pain, vomiting, vaginal bleeding Time Seen by Provider: 01/01/23 02:17 Source: patient and family Mode of arrival: ambulatory Limitations: no limitations History of Present Illness: Patient presents emergency department today accompanied by family for evaluation treatment of heavy vaginal bleeding. Patient has a known history of PCOS and has had 3 D&Cs for thickened endometrium. Patient has had endometrial biopsies which have all been precancerous and has an upcoming appointment next month with [facility] [employer] OPER[facility] Dr. Turner to discuss hysterectomy. Patient has had chills and sweats but no recorded fevers. She started heavily bleeding today with some spotting starting last night. She indicated her last episode of bleeding was approximately 3 weeks ago. She presents that she is in quite a lot of pain in h er lower abdomen and reports her bleeding is quite heavy. She is also had some vomiting today which she attributes to possibly the amount of pain she has been in. Related Data: : 0 Review of Systems General: Reports: 10 or more systems reviewed and unremarkable except in HPI and below PFSH ED PFSH: Social History Smoking and tobacco status: never smoked Alcohol intake: never Substance/Drug Use: never Female Reproductive History: : 0 Physical Exam Const: COMMON NORMALS: no acute distress, average body habitus, patient oriented x3 and alert HENMT: COMMON NORMALS: normocephalic, atraumatic, hearing grossly normal bilaterally and moist oral mucous membranes HEAD & SCALP: normocephalic and atraumatic Eye: COMMON NORMALS: Equal, round and reactive pupils present, EOMs intact bilaterally and conjunctivae normal CONJUNCTIVA: Yes conjunctivae normal PUPIL: Yes Equal, round and reactive pupils present Neck/C-Spine: COMMON NORMALS: no JVD Lymph: LYMPHATIC: no lymphadenopathy noted Resp: COMMON NORMALS: normal respiratory effort, No retractions and No use of accessory muscles Cardio: COMMON NORMALS: no JVD and regular rate RATE: regular rate GI: COMMON NORMALS: Normal to inspection, nondistended, normoactive bowel sounds present Extremity: COMMON NORMALS: normal to inspection, full ROM and capillary refill normal Neuro: COMMON NORMALS: patient oriented x3 SENSORIUM/ORIENTATION: Yes alert Psych: COMMON NORMALS: mental status grossly normal, cooperative, normal affect, speech normal and activity/motor behavior normal SPEECH: Yes normal speech Course Vital Signs: Vital signs: Vital Signs Temperature 97.6 F 01/01/23 01:34 Pulse Rate 69 01/01/23 01:48 Respiratory Rate 16 01/01/23 01:48 Blood Pressure 159/93 01/01/23 01:48 Pulse Oximetry 98 01/01/23 01:48 MDM - Female Medical Decision Making Patient presents emergency department for recurrent abnormal vaginal bleeding. Patient has known PCOS as well as chronically thickened endometrium requiring 3 previous D&Cs. Patient has an upcoming appointment with [facility] [employer] [facility]ATOR to discuss definitive treatment with hysterectomy however, over the last 24 hours has had some heavy bleeding and low abdominal cramping. Patient's lab work is generally unremarkable given her presenting symptoms. Patient reports significant improvement of her pain with treatment here in the emergency department. After discussing the case with Dr. Villeda, we we will continue treatment at home with TXA, Zofran, and a short course of [place]. Went over return precautions. Encouraged her to call her MAG[employer] T[employer] TYPEWRITER OPERATOR on Tuesday to make them aware for evaluation today as they may wish to move up her surgical consult. Patient verbalized understanding and agreement to treatment plan. Differential Diagnosis Likely abdominal pain, calculus of kidney, constipation and gastroenteritis Lab Data 01/01/23 02:50 01/01/23 02:50 Laboratory Results WBC 15.0 10^3/uL (4.0-10.0) H 01/01/23 02:50 RBC 5.30 10^6/uL (4.1-5.3) 01/01/23 02:50 Hgb 16.1 g/dL (11.5-15.3) H 01/01/23 02:50 Hct 49.0 % (37.0-47.0) H 01/01/23 02:50 MCV 92.5 fl (81-99) 01/01/23 02:50 MCH 30.4 pg (28.0-34.0) 01/01/23 02:50 MCHC 32.9 g/dL (30.0-36.0) 01/01/23 02:50 RDW 12.5 % (12.1-15.1) 01/01/23 02:50 Plt Count 300 10^3/cmm (130-400) 01/01/23 02:50 MPV 9.8 fL (7.4-10.4) 01/01/23 02:50 Neut % (Auto) 71.8 % 01/01/23 02:50 Lymph % (Auto) 19.5 % 01/01/23 02:50 [place] % (Auto) 6.3 % 01/01/23 02:50 Eos % (Auto) 1.2 % 01/01/23 02:50 Baso % (Auto) 0.4 % 01/01/23 02:50 Neut # (Auto) 10.79 10^3/uL (1.8-7.7) H 01/01/23 02:50 Lymph # (Auto) 2.9 10^3/uL (0.8-4.8) 01/01/23 02:50 [place] # (Auto) 1.0 10^3/uL (0.2-0.9) H 01/01/23 02:50 Eos # (Auto) 0.2 10^3/uL (0.0-0.8) 01/01/23 02:50 Baso # (Auto) 0.1 10^3/uL (0.0-0.1) 01/01/23 02:50 Nucleated RBC % (auto) 0 % 01/01/23 02:50 Nucleated RBCs # 0.0 /100WBC 01/01/23 02:50 Sodium 135 mmol/L (136-145) L 01/01/23 02:50 Potassium 4.1 mmol/L (3.5-5.1) 01/01/23 02:50 Chloride 99 mmol/L (98-107) 01/01/23 02:50 Carbon Dioxide 24 mmol/L (22-29) 01/01/23 02:50 Anion Gap 16.1 (5-19) 01/01/23 02:50 BUN 16 mg/dL (6-20) 01/01/23 02:50 Creatinine 0.7 mg/dL (0.5-0.9) 01/01/23 02:50 GFR Calculation 98.3 mL/min (90-130) 01/01/23 02:50 Glucose 196 mg/dL (65-115) H 01/01/23 02:50 Calculated Osmolality 287 mOsm/kg (285-295) 01/01/23 02:50 Calcium 9.3 mg/dL (8.5-10.5) 01/01/23 02:50 Total Bilirubin 0.3 mg/dL (0.15-1.2) 01/01/23 02:50 AST 14 U/L (0-32) 01/01/23 02:50 ALT 21 U/L (0-33) 01/01/23 02:50 Alkaline Phosphatase 99 U/L (35-105) 01/01/23 02:50 Total Protein 7.5 g/dL (6.6-8.7) 01/01/23 02:50 Albumin 3.9 g/dL (3.5-5.2) 01/01/23 02:50 Globulin 3.6 g/dL (1.3-4.6) 01/01/23 02:50 HCG, Qual Negative (Negative) 01/01/23 02:25 Discharge Plan Discharge Patient Disposition: Home Clinical Impression: Menorrhagia Condition: Stable Prescriptions: New tranexamic acid 650 mg tablet 1,300 mg PO TID 5 Days Qty: 30 0RF ondansetron 4 mg tablet,disintegrating 4 mg PO Q8H 5 Days Qty: 15 0RF No Action trazodone 50 mg Tablet 100 mg PO BEDTIME PRN (Reason: Sleep) 30 Days Qty: 30 1RF escitalopram oxalate 10 mg Tablet 20 mg PO DAILY 30 Days Qty: 30 1RF Discharge Orders: Discharge ED (Routine); Ordered 01/01/23 Ordered By: Zainab Lofton Referrals: Cheryl Baxter, [facility] SPECIALIST [Primary Care Provider] - Discharge Diet: Usual diet Discharge Activity: Increase activity as tolerated Patient Instructions: Menorrhagia (ED) Activity Restrictions/Additional Instructions: Lab work today is otherwise stable. The emergency room physician here andrey has prescribed some medication to help control your bleeding over the next few days. We are providing you some antinausea medication as well as some medication for pain as you may still have severe cramping and abdominal discomfort as the medication is beginning to work. We do recommend reaching out to the [facility] T[employer] TYPEWRITER OPERATOR office to make them aware of your evaluation here today as they may wish to move your appointment up for surgical evaluation. Coding Level of Care Code ED Junior Staff Accountant for Saulo Castillo
[2023-01-01 02:44] LABS: HCG Qualitative Urine. Negative (Negative)
[2023-01-01] MEDS: HYDROcodone-acetaminophen 5-325 mg Tablet 1 TAB PO (02:55)
[2023-01-01] MEDS: ondansetron 4 MG Tablet PO (02:56)
[2023-01-01 03:10] LABS: Basophils # 0.1 10^3/uL (0.0-0.1); Basophils % 0.4 %; Eosinophils # 0.2 10^3/uL (0.0-0.8); Eosinophils % 1.2 %; Hemoglobin 16.1 g/dL (11.5-15.3); Lymphocytes # 2.9 10^3/uL (0.8-4.8); Lymphocytes % 19.5 %; Mean Corpuscular HGB Conc 32.9 g/dL (30.0-36.0); Mean Corpuscular Hemoglobin 30.4 pg (28.0-34.0); Mean Corpuscular Volume 92.5 fl (81-99); Mean Platelet Volume 9.8 fL (7.4-10.4); Monocytes % 6.3 %; Neutrophils # 10.79 10^3/uL (1.8-7.7); Neutrophils % 71.8 %; Nucleated Red Blood Cells % 0 %; Platelet Count 300 10^3/cmm (130-400); Red Cell Distribution Width 12.5 % (12.1-15.1)
[2023-01-01 03:30] LABS: Alanine Aminotransferase 21 U/L (0-33); Albumin Level 3.9 g/dL (3.5-5.2); Alkaline Phosphatase 99 U/L (35-105); Anion Gap 16.1 (5-19); Aspartate Amino Transferase 14 U/L (0-32); Blood Urea Nitrogen 16 mg/dL (6-20); Calcium 9.3 mg/dL (8.5-10.5); Carbon Dioxide 24 mmol/L (22-29); Chloride 99 mmol/L (98-107); Globulin 3.6 g/dL (1.3-4.6); Glomerular Filtration Rate 98.3 mL/min (90-130); Glucose 196 mg/dL (65-115); Osmolality Calculated 287 mOsm/kg (285-295); Potassium 4.1 mmol/L (3.5-5.1); Sodium 135 mmol/L (136-145); Total Bilirubin 0.3 mg/dL (0.15-1.2); Total Protein 7.5 g/dL (6.6-8.7)
[2023-01-01 04:07] VITALS: BP 159/93; PULSE 69; RESP 16; TEMP 36.4; O2SAT 98
== END 2023-01-01 04:08 | disposition home or self-care (01) ==
PROVIDERS: Emergency Provider Physician Assistant; PCP Nurse Practitioner Family
DX: N92.0 Excessive and frequent menstruation with regular cycle (principal)
CPT/HCPCS: 80053; 81025; 85025; 99283; Q0162